=== PATIENT | male | born 1940 | race Caucasian/White ===

== ENCOUNTER 2016-04-23 11:08 | Emergency (ER) | payer MEDICARE, OTHER ==
[~2016-04-23] VITALS: Ht 182.9 cm; Wt 68.0 kg
[2016-04-23 14:09] VITALS: BP 0/0
[2016-04-24 10:26] LABS: POC CA IONIZED 4.8 mg/dL (4.5-5.3); POC CREATININE 1.7 mg/dL (0.6-1.3); POC HEMOGLOBIN 11.2 gm/dL (14.0-18.0); POC POTASSIUM 6.1 mmol/L (3.5-5.1)
== END 2016-04-23 14:10 ==
LOC: ER 11:08
PROVIDERS: Emergency Medicine
DX: I46.9 Cardiac arrest, cause unspecified (principal)